=== PATIENT | female | born 1985 | race African-American/Black ===

== ENCOUNTER 2017-05-20 05:17 | Day surgery (SDC) | payer MEDICAID ==
[~2017-05-20] VITALS: Ht 170.2 cm; Wt 83.0 kg
[2017-05-20 06:29] LABS: HEMATOCRIT 34.2 % (36.0-48.0)
[2017-05-20 06:33] LABS: CLARITY URINE CLEAR (CLEAR); COLOR URINE YELLOW (YELLOW); KETONES URINE NEGATIVE (NEGATIVE); LEUKOCYTE ESTERASE URINE 2+ (NEGATIVE); NITRITE URINE NEGATIVE (NEGATIVE); OCCULT BLOOD URINE 1+ (NEGATIVE); PH URINE 7.5 (4.5-8.0); PROTEIN URINE NEGATIVE (NEGATIVE); SPECIFIC GRAVITY URINE 1.011 (1.005-1.030); UROBILINOGEN URINE 0.2 E.U./dL (0.2-1.0)
[2017-05-20 06:39] LABS: INR 1.1; PARTIAL THROMBOPLASTIN TIME 29.6 sec (23.4-31.0); PROTHROMBIN TIME 11.1 sec (9.4-11.6)
[2017-05-20] MEDS ORDERED: LACTATED RINGERS 1,000 ML IV SCH (06:45)
[2017-05-20 06:48] LABS: UCG SCREEN INDETERMINANT
[2017-05-20] MEDS ORDERED: CEPH-568 PO (07:13)
[2017-05-20] MEDS ORDERED: CEFAZOLIN SODIUM 1000MG/VIAL ONE (08:04)
[2017-05-20] MEDS ORDERED: OXYTOCIN 10 UNITS/ML 1ML ONE (08:04)
[2017-05-20] MEDS ORDERED: DEXAMETHASONE 4MG/ML 1ML VIAL ONE (08:04)
[2017-05-20] MEDS ORDERED: ONDANSETRON HCL 4MG/2ML VIAL ONE (08:04)
[2017-05-20] MEDS ORDERED: MEPERIDINE HCL/PF 25MG/ML CPJ IV PRN (08:30)
[2017-05-20] MEDS ORDERED: HYDROMORPHONE HCL/PF 2MG/ML CPJ IV PRN (08:30)
[2017-05-20] MEDS ORDERED: ONDANSETRON HCL 4MG/2ML VIAL IV PRN (08:30)
[2017-05-20] MEDS ORDERED: LABETALOL HCL 5MG/ML VIAL 20ML IV PRN (08:30)
[2017-05-20 08:50] VITALS: BP 113/46
== END 2017-05-20 10:35 | disposition home or self-care (01) ==
LOC: OR 05:17
PROVIDERS: ATTEND Obstetrics & Gynecology Obstetrics
DX: O03.4 Incomplete spontaneous abortion without complication (principal); Z98.890 Other specified postprocedural states; Z79.899 Other long term (current) drug therapy; Z82.49 Family history of ischemic heart disease and other diseases of the circulatory system
CPT/HCPCS: 36415; 59812; 81001; 81025; 85014; 85018; 85610; 85730; 86850; 86900; 86901; 88300; 88305; C1758; J0690; J1100; J2175; J2405; J7120